=== PATIENT | male | born 1985 | race Hispanic/Latino ===

== ENCOUNTER 2017-04-22 19:55 | Emergency (ER) | payer SELFPAY | END 2017-04-22 21:08 | disposition home or self-care (01) | LOC: EDH 19:55 | DX: N50.89 Other specified disorders of the male genital organs (principal); E11.9 Type 2 diabetes mellitus without complications; Z72.0 Tobacco use | CPT/HCPCS: 76870 ==

== ENCOUNTER 2017-04-24 15:14 | Emergency (ER) | payer SELFPAY | END 2017-04-24 15:57 | disposition home or self-care (01) | LOC: EDH 15:14 | DX: L73.8 Other specified follicular disorders (principal); E11.9 Type 2 diabetes mellitus without complications; Z72.0 Tobacco use ==

== ENCOUNTER 2023-06-11 18:29 | Inpatient (IN) | payer OTHER ==
[~2023-06-11] VITALS: Ht 167.6 cm; Wt 75.4 kg
[2023-06-11 19:13] LABS: BASOPHILS # (AUTO) 0.04 K/uL (0.00-0.20); BASOPHILS % (AUTO) 0.3 % (0.0-5.0); EOSINOPHILS # (AUTO) 0.37 K/uL (0.00-0.70); EOSINOPHILS % (AUTO) 2.8 % (0.0-8.0); IMMATURE GRANULOCYTE ABSOLUTE 0.06 K/uL (0-1); LYMPHOCYTES # (AUTO) 2.8 K/uL (1.0-4.8); LYMPHOCYTES % (AUTO) 20.6 % (21.0-51.0); MEAN CORPUSCULAR HEMOGLOBIN 30.9 pg (27.0-33.0); MEAN CORPUSCULAR HGB CONC 34.2 g/dL (32.0-36.0); MEAN CORPUSCULAR VOLUME 90.3 fL (79-99); MONOCYTES # (AUTO) 1.2 K/uL (0.1-1.0); MONOCYTES % (AUTO) 9.2 % (3.0-13.0); NEUTROPHILS % (AUTO) 66.7 % (40.0-77.0); PLATELET COUNT (AUTO) 318 K/uL (130-400); RED BLOOD CELL COUNT(AUTO) 2.88 MIL/uL (4.50-6.20); RED CELL DISTRIBUTION WIDTH 13.9 % (11.0-15.5); WHITE BLOOD COUNT (AUTO) 13.4 K/uL (4.8-10.8)
[2023-06-11 19:23] LABS: CREATININE 5.6 mg/dL (0.5-1.3); POTASSIUM 4.1 mmol/L (3.5-5.1)
[2023-06-11 19:28] LABS: ALBUMIN 2.1 g/dL (3.5-5.0); BILIRUBIN,TOTAL 0.1 mg/dL (0.2-1.0); TOTAL PROTEIN, SERUM 6.3 g/dL (6.0-8.3)
[2023-06-11] MEDS: ASPIRIN 81MG CHEW TAB PO ONE (20:22)
[2023-06-11] MEDS: NITROGLYCERIN 1GM OINT 1 INCH/1GM TD ONE (20:22)
[2023-06-11 22:44] LABS: INR <= 0.93 (0.85-1.15); PROTHROMBIN TIME 9.5 SEC (9.6-11.6)
[2023-06-11 22:45] LABS: PARTIAL THROMBOPLASTIN TIME 31.6 SEC (26.3-35.5)
[2023-06-11] MEDS ORDERED: MAG/ALUM/SIMETH 30 ML UDCUP PO PRN (23:00)
[2023-06-11] MEDS ORDERED: NITROGLYCERIN 0.4 MG SL TAB SL PRN (23:00)
[2023-06-11] MEDS ORDERED: LACTULOSE 20 GM/30 ML UDCUP PO PRN (23:00)
[2023-06-11] MEDS ORDERED: ACETAMINOPHEN WITH CODEINE 1 TAB TAB PO PRN ×2 (23:00)
[2023-06-11] MEDS ORDERED: DIPHENHYDRAMINE HCL 25 MG CAPSULE PO PRN (23:00)
[2023-06-11] MEDS ORDERED: FOLIC ACID PO (23:35)
[2023-06-11] MEDS ORDERED: SODI650T PO (23:35)
[2023-06-11] MEDS ORDERED: FOLI1TAB85 PO (23:35)
[2023-06-11] MEDS ORDERED: HYDR25TA67 PO (23:35)
[2023-06-11] MEDS: FAMOTIDINE 20MG VIAL IV SCH (23:49)
[2023-06-11] MEDS: CEFTRIAXONE 1G VIAL IV SCH (23:50)
[2023-06-12] VITALS (23 sets, daily range): BP systolic 131–184; BP diastolic 69–99; PULSE 83–105; RESP 16–20; TEMP 97.7–98.1; O2SAT 100
[2023-06-12] MEDS: HYDRALAZINE 20MG/ML VIAL IV PRN (03:48)
[2023-06-12] MEDS ORDERED: GLUCAGON 1MG KIT 1 MG ML IM PRN (05:30)
[2023-06-12] MEDS ORDERED: DEXTROSE 50%-WATER 50 ML DISP.SYRIN IV PRN (05:30)
[2023-06-12] MEDS: INSULIN HUMULIN R 100 UNIT/ML 3ML SQ SCH (05:39)
[2023-06-12] MEDS: HEPARIN 5,000 UNIT VIAL SQ SCH (06:10)
[2023-06-12] MEDS: SODIUM BICARBONATE 650 MG TAB PO SCH (09:00)
[2023-06-12] MEDS: FOLIC ACID 1 MG TABLET PO SCH (09:00)
[2023-06-12] MEDS: HYDRALAZINE 25MG TABLET PO SCH (09:00)
[2023-06-12] MEDS: Vitamin B Complex/Vit C/Folic Acid PO SCH (09:00)
[2023-06-12 13:22] LABS: CREATININE 3.2 mg/dL (0.5-1.3)
[2023-06-12 13:28] LABS: % IRON SATURATION 26.9 % (30-44)
[2023-06-12 14:32] LABS: HIV 1&2 ANTIBODY Non-Reactive (Negative)
[2023-06-12 14:33] LABS: HIV-1 p24 Antigen Non-Reactive (Negative)
[2023-06-12] MEDS: ATORVASTATIN 40 MG TABLET PO SCH (20:06)
[2023-06-12] MEDS: ACETAMINOPHEN WITH CODEINE 1 TAB TAB PO PRN (20:07)
[2023-06-12 21:53] LABS: HEPATITIS B CORE AB TOTAL Non-Reactive (Nonreactive); HEPATITIS B SURFACE ANTIBODY Negative (Reactive); HEPATITIS B SURFACE ANTIGEN Non-Reactive (Nonreactive)
[2023-06-13] VITALS (8 sets, daily range): BP systolic 141–182; BP diastolic 75–92; PULSE 74–102; RESP 18–20; O2SAT 98–100
[2023-06-13 12:20] LABS: HEMATOCRIT 31.5 % (42-54); MEAN CORPUSCULAR HEMOGLOBIN 30.9 pg (27.0-33.0); MEAN CORPUSCULAR HGB CONC 32.1 g/dL (32.0-36.0); MEAN CORPUSCULAR VOLUME 96.3 fL (79-99); RED BLOOD CELL COUNT(AUTO) 3.27 MIL/uL (4.50-6.20); RED CELL DISTRIBUTION WIDTH 14.1 % (11.0-15.5)
[2023-06-13 12:48] LABS: CREATININE 5.2 mg/dL (0.5-1.3); POTASSIUM 3.9 mmol/L (3.5-5.1)
[2023-06-14] VITALS (22 sets, daily range): BP systolic 117–187; BP diastolic 70–104; PULSE 82–97; RESP 16–20; TEMP 98.2–98.4; O2SAT 98–100
[2023-06-14 04:53] LABS: HEMATOCRIT 28.5 % (42-54); MEAN CORPUSCULAR HEMOGLOBIN 30.5 pg (27.0-33.0); MEAN CORPUSCULAR VOLUME 92.5 fL (79-99); RED BLOOD CELL COUNT(AUTO) 3.08 MIL/uL (4.50-6.20); RED CELL DISTRIBUTION WIDTH 13.9 % (11.0-15.5); WHITE BLOOD COUNT (AUTO) 13.6 K/uL (4.8-10.8)
[2023-06-14 05:01] LABS: CREATININE 5.9 mg/dL (0.5-1.3)
[2023-06-14] MEDS: HEPARIN 5,000 UNIT VIAL IRRIG PRN (12:17)
[2023-06-14] MEDS: MORPHINE 2 MG SYG IVP ONE (12:45)
[2023-06-14 13:41] LABS: ALBUMIN 2.2 g/dL (3.5-5.0); BILIRUBIN,TOTAL 0.3 mg/dL (0.2-1.0); CREATININE 3.7 mg/dL (0.5-1.3); MAGNESIUM 1.7 mg/dL (1.80-2.40); POTASSIUM 3.8 mmol/L (3.5-5.1)
[2023-06-14] MEDS: HYDROMORPHONE 0.5 MG SYG (0.5MG/0.5ML) IVP STA (20:18)
[2023-06-15] VITALS (9 sets, daily range): BP systolic 144–181; BP diastolic 76–93; PULSE 79–108; RESP 17–21; O2SAT 97
[2023-06-15 05:15] LABS: HEMATOCRIT 26.5 % (42-54); MEAN CORPUSCULAR HEMOGLOBIN 31.2 pg (27.0-33.0); MEAN CORPUSCULAR HGB CONC 33.2 g/dL (32.0-36.0); RED BLOOD CELL COUNT(AUTO) 2.82 MIL/uL (4.50-6.20); RED CELL DISTRIBUTION WIDTH 13.8 % (11.0-15.5); WHITE BLOOD COUNT (AUTO) 13.1 K/uL (4.8-10.8)
[2023-06-15 05:26] LABS: CREATININE 4.9 mg/dL (0.5-1.3); MAGNESIUM 1.7 mg/dL (1.80-2.40); PHOSPHORUS 6.1 mg/dL (2.5-4.9); POTASSIUM 3.6 mmol/L (3.5-5.1)
[2023-06-15] MEDS: VITAMIN E 400 UNIT CAPSULE PO SCH (08:39)
[2023-06-16] VITALS (24 sets, daily range): BP systolic 143–195; BP diastolic 78–97; PULSE 76–107; RESP 16–20; TEMP 98–98.3; O2SAT 100
[2023-06-16 04:23] LABS: HEMATOCRIT 25.9 % (42-54); MEAN CORPUSCULAR HEMOGLOBIN 30.8 pg (27.0-33.0); MEAN CORPUSCULAR HGB CONC 33.2 g/dL (32.0-36.0); MEAN CORPUSCULAR VOLUME 92.8 fL (79-99); RED BLOOD CELL COUNT(AUTO) 2.79 MIL/uL (4.50-6.20); RED CELL DISTRIBUTION WIDTH 13.6 % (11.0-15.5); WHITE BLOOD COUNT (AUTO) 13.4 K/uL (4.8-10.8)
[2023-06-16 04:33] LABS: MAGNESIUM 1.7 mg/dL (1.80-2.40); PHOSPHORUS 6.1 mg/dL (2.5-4.9); POTASSIUM 3.9 mmol/L (3.5-5.1)
[2023-06-16] MEDS: AMLODIPINE 5 MG TAB PO SCH (08:25)
[2023-06-16] MEDS: ACETAMINOPHEN 325 MG TAB PO PRN (17:11)
[2023-06-17] VITALS (8 sets, daily range): BP systolic 145–195; BP diastolic 70–92; PULSE 96–116; RESP 16–19; O2SAT 96–100
[2023-06-17 03:50] LABS: BASOPHILS # (AUTO) 0.05 K/uL (0.00-0.20); BASOPHILS % (AUTO) 0.4 % (0.0-5.0); EOSINOPHILS # (AUTO) 0.44 K/uL (0.00-0.70); EOSINOPHILS % (AUTO) 3.6 % (0.0-8.0); HEMATOCRIT 31.5 % (42-54); IMMATURE GRANULOCYTE ABSOLUTE 0.09 K/uL (0-1); LYMPHOCYTES # (AUTO) 2.8 K/uL (1.0-4.8); LYMPHOCYTES % (AUTO) 22.4 % (21.0-51.0); MEAN CORPUSCULAR HEMOGLOBIN 31.3 pg (27.0-33.0); MEAN CORPUSCULAR VOLUME 94.9 fL (79-99); MONOCYTES # (AUTO) 1.1 K/uL (0.1-1.0); NEUTROPHILS # (AUTO) 7.8 K/uL (1.8-7.7); NEUTROPHILS % (AUTO) 63.9 % (40.0-77.0); PLATELET COUNT (AUTO) 425 K/uL (130-400); RED BLOOD CELL COUNT(AUTO) 3.32 MIL/uL (4.50-6.20); RED CELL DISTRIBUTION WIDTH 13.9 % (11.0-15.5); WHITE BLOOD COUNT (AUTO) 12.3 K/uL (4.8-10.8)
[2023-06-17 04:25] LABS: ALBUMIN 2.1 g/dL (3.5-5.0); BILIRUBIN,TOTAL 0.2 mg/dL (0.2-1.0); CREATININE 4.6 mg/dL (0.5-1.3); MAGNESIUM 1.8 mg/dL (1.80-2.40); TOTAL PROTEIN, SERUM 6.8 g/dL (6.0-8.3)
[2023-06-18] VITALS (10 sets, daily range): BP systolic 139–184; BP diastolic 67–102; PULSE 100–120; RESP 17–19; O2SAT 99–100
[2023-06-18] MEDS: ONDANSETRON 4MG INJ IV PRN (05:39)
[2023-06-19] VITALS (37 sets, daily range): BP systolic 128–203; BP diastolic 64–105; PULSE 80–130; RESP 11–24; TEMP 97.8–98; O2SAT 98
[2023-06-19 05:47] LABS: BASOPHILS # (AUTO) 0.08 K/uL (0.00-0.20); BASOPHILS % (AUTO) 0.5 % (0.0-5.0); EOSINOPHILS % (AUTO) 2.7 % (0.0-8.0); HEMATOCRIT 27.3 % (42-54); IMMATURE GRANULOCYTE ABSOLUTE 0.16 K/uL (0-1); LYMPHOCYTES # (AUTO) 2.4 K/uL (1.0-4.8); LYMPHOCYTES % (AUTO) 16.3 % (21.0-51.0); MEAN CORPUSCULAR HEMOGLOBIN 31.4 pg (27.0-33.0); MEAN CORPUSCULAR HGB CONC 32.6 g/dL (32.0-36.0); MEAN CORPUSCULAR VOLUME 96.5 fL (79-99); MONOCYTES # (AUTO) 1.4 K/uL (0.1-1.0); MONOCYTES % (AUTO) 9.4 % (3.0-13.0); NEUTROPHILS # (AUTO) 10.4 K/uL (1.8-7.7); PLATELET COUNT (AUTO) 340 K/uL (130-400); RED BLOOD CELL COUNT(AUTO) 2.83 MIL/uL (4.50-6.20); RED CELL DISTRIBUTION WIDTH 14.2 % (11.0-15.5); WHITE BLOOD COUNT (AUTO) 14.8 K/uL (4.8-10.8)
[2023-06-19 06:10] LABS: BILIRUBIN,TOTAL 0.2 mg/dL (0.2-1.0); CREATININE 6.4 mg/dL (0.5-1.3); MAGNESIUM 1.7 mg/dL (1.80-2.40); PHOSPHORUS 4.8 mg/dL (2.5-4.9); POTASSIUM 4.6 mmol/L (3.5-5.1); TOTAL PROTEIN, SERUM 5.9 g/dL (6.0-8.3)
[2023-06-19 06:11] LABS: INR <= 0.93 (0.85-1.15); PROTHROMBIN TIME 9.8 SEC (9.6-11.6)
[2023-06-19 06:13] LABS: PARTIAL THROMBOPLASTIN TIME 29.5 SEC (26.3-35.5)
[2023-06-19] MEDS ORDERED: ATOR40TA69 PO (09:28)
[2023-06-19] MEDS ORDERED: VITA-395 PO (09:28)
[2023-06-19] MEDS ORDERED: AMLO5TAB4 PO (09:28)
[2023-06-19] MEDS ORDERED: MIDAZOLAM HCL 1 MG/ML 2ML VIAL ONE (14:03)
[2023-06-19] MEDS ORDERED: PROPOFOL 10 MG/ML 20ML VIAL IV ONE ×2 (14:03→14:45)
[2023-06-19] MEDS ORDERED: FENTANYL CITRATE PF 50 MCG/1 ML 2ML VIAL ONE ×2 (14:04→15:45)
[2023-06-19] MEDS ORDERED: ONDANSETRON 4MG INJ ONE (14:17)
[2023-06-19] MEDS ORDERED: ROCURONIUM BROMIDE 10MG/1ML 5ML VL ONE (14:17)
[2023-06-19] MEDS ORDERED: PHENYLEPHRINE HCL 10 MG/ML 1ML VIAL IV ONE (14:37)
[2023-06-19] MEDS ORDERED: PROTAMINE SULFATE 10 MG/ML 5 ML VIAL ONE ×2 (15:11→15:30)
[2023-06-19] MEDS ORDERED: NEOSTIGMINE METHYLSULFATE 1MG/ML IV ONE (15:49)
[2023-06-19] MEDS ORDERED: GLYCOPYRROLATE 0.2 MG/ML 5 ML VIAL ONE (15:49)
[2023-06-19] MEDS: MEPERIDINE-PF 25 MG/ML SYG ONE (16:50)
[2023-06-19] MEDS: FENTANYL CITRATE PF 50 MCG/1 ML 2ML VIAL ONE (16:50)
[2023-06-19] MEDS: LABETALOL 20MG SYG IV ONE (16:51)
[2023-06-19] MEDS: ONDANSETRON 4MG INJ ONE (16:51)
[2023-06-19] MEDS ORDERED: TRAMADOL HCL 50 MG TABLET PO PRN (17:30)
[2023-06-19] MEDS ORDERED: ACETAMINOPHEN 325 MG TAB PO PRN (17:30)
[2023-06-19] MEDS: TRAMADOL HCL 50 MG TABLET PO PRN (23:00)
[2023-06-20 01:30] VITALS: BP 170/77; PULSE 103
[2023-06-20 02:31] VITALS: BP 146/69
[2023-06-20 04:09] VITALS: BP 131/64; PULSE 92; RESP 18
[2023-06-20 06:10] LABS: HEMATOCRIT 25.7 % (42-54); MEAN CORPUSCULAR HGB CONC 33.1 g/dL (32.0-36.0); MEAN CORPUSCULAR VOLUME 93.8 fL (79-99); RED BLOOD CELL COUNT(AUTO) 2.74 MIL/uL (4.50-6.20); WHITE BLOOD COUNT (AUTO) 15.7 K/uL (4.8-10.8)
[2023-06-20 06:21] LABS: CREATININE 4.8 mg/dL (0.5-1.3); PHOSPHORUS 4.6 mg/dL (2.5-4.9)
[2023-06-20 08:00] VITALS: BP 151/74; PULSE 97; RESP 17; O2SAT 98
[2023-06-20] MEDS ORDERED: APIX2.5T PO (08:40)
[2023-06-20] MEDS: GUAIFENESIN-DM 200/20 MG 10 ML PO PRN (10:11)
[2023-06-20 11:54] VITALS: BP 150/81; PULSE 116; RESP 19
== END 2023-06-20 15:00 | disposition home or self-care (01) | DRG 264 ==
LOC: EDH 18:29 → EDHIP 18:30 → 4BH 06-12 03:01
PROVIDERS: ADMIT Hospitalist; ATTEND Hospitalist
PROC: 5A1D70Z Performance of Urinary Filtration, Intermittent, Less than 6 Hours Per Day (ICD-10-PCS; 2023-06-12)
PROC: 5A1D70Z Performance of Urinary Filtration, Intermittent, Less than 6 Hours Per Day (ICD-10-PCS; 2023-06-14)
PROC: 5A1D70Z Performance of Urinary Filtration, Intermittent, Less than 6 Hours Per Day (ICD-10-PCS; 2023-06-16)
PROC: 5A1D70Z Performance of Urinary Filtration, Intermittent, Less than 6 Hours Per Day (ICD-10-PCS; 2023-06-19)
PROC: 03170ZD Bypass Right Brachial Artery to Upper Arm Vein, Open Approach (ICD-10-PCS; principal; 2023-06-19 14:12)
DX: I82.612 Acute embolism and thrombosis of superficial veins of left upper extremity (principal); N18.6 End stage renal disease; I21.A1 Myocardial infarction type 2; J96.01 Acute respiratory failure with hypoxia; E87.20 Acidosis, unspecified; I12.0 Hypertensive chronic kidney disease with stage 5 chronic kidney disease or end stage renal disease; E11.22 Type 2 diabetes mellitus with diabetic chronic kidney disease; D72.829 Elevated white blood cell count, unspecified; D64.9 Anemia, unspecified; E11.51 Type 2 diabetes mellitus with diabetic peripheral angiopathy without gangrene; E78.5 Hyperlipidemia, unspecified; E87.70 Fluid overload, unspecified; I25.10 Atherosclerotic heart disease of native coronary artery without angina pectoris; Z91.199 Patient's noncompliance with other medical treatment and regimen due to unspecified reason; Z99.2 Dependence on renal dialysis
CPT/HCPCS: 36415; 71045; 80048; 80053; 80061; 82040; 82550; 82565; 82948; 83540; 83550; 83735; 83880; 84100; 84145; 84484; 84520; 85014; 85018; 85025; 85027; 85610; 85730; 86701; 86704; 86706; 86803; 86850; 86900; 86901; 87040; 87340; 87390; 90935; 93005; 93306; 93925; 93970; 93971; 96365; 96375; G0378; J0360; J0696; J1170; J1644; J1815; J2175; J2250; J2270; J2371; J2405; J2704; J2710; J2720; J3010; J3490; J7030; J7040; A4216; A4222; A4223; A4649; A4930; A6219; C1713; G0168

== ENCOUNTER 2023-11-08 12:31 | Emergency (ER) | payer BC, OTHER ==
[~2023-11-08] VITALS: Ht 162.6 cm; Wt 80.7 kg
[~2023-11-08 12:31] MED LIST: AMLO5TAB4 PO; APIX2.5T PO; ATOR40TA69 PO; FOLI1TAB85 PO; FOLIC ACID PO; HYDR25TA67 PO; SODI650T PO; VITA-395 PO
[2023-11-08 13:08] LABS: BASOPHILS # (AUTO) 0.03 K/uL (0.00-0.20); BASOPHILS % (AUTO) 0.2 % (0.0-5.0); EOSINOPHILS # (AUTO) 0.02 K/uL (0.00-0.70); EOSINOPHILS % (AUTO) 0.1 % (0.0-8.0); HEMATOCRIT 29.5 % (42-54); IMMATURE GRANULOCYTE ABSOLUTE 0.11 K/uL (0-1); LYMPHOCYTES # (AUTO) 0.8 K/uL (1.0-4.8); LYMPHOCYTES % (AUTO) 5.7 % (21.0-51.0); MEAN CORPUSCULAR HEMOGLOBIN 32.3 pg (27.0-33.0); MEAN CORPUSCULAR HGB CONC 34.2 g/dL (32.0-36.0); MEAN CORPUSCULAR VOLUME 94.2 fL (79-99); MONOCYTES # (AUTO) 1.6 K/uL (0.1-1.0); MONOCYTES % (AUTO) 10.6 % (3.0-13.0); NEUTROPHILS # (AUTO) 12.2 K/uL (1.8-7.7); NEUTROPHILS % (AUTO) 82.7 % (40.0-77.0); PLATELET COUNT (AUTO) 224 K/uL (130-400); RED BLOOD CELL COUNT(AUTO) 3.13 MIL/uL (4.50-6.20); RED CELL DISTRIBUTION WIDTH 13.8 % (11.0-15.5); WHITE BLOOD COUNT (AUTO) 14.8 K/uL (4.8-10.8)
[2023-11-08 13:24] LABS: POTASSIUM 3.7 mmol/L (3.5-5.1)
[2023-11-08 13:30] LABS: CREATININE 8.2 mg/dL (0.5-1.3)
[2023-11-08 14:01] LABS: SARS-CoV-2, RNA, NAAT NEGATIVE SARS CoV-2 (NEGATIVE)
[2023-11-08 14:05] LABS: INFLUENZA TYPE A Negative For Type A (NEGATIVE); INFLUENZA TYPE B Negative For Type B (NEGATIVE)
[2023-11-08] MEDS: acetaMINOPHEN 500 MG TABLET PO ONE (14:14)
[2023-11-08] MEDS: CEFTRIAXONE 2GM VIAL IVPB ONE (15:57)
[2023-11-08] MEDS: 0.9%NACL 1000ML 1,000 ML IV ONE (15:57)
[2023-11-08 18:04] LABS: APPEARANCE,URINE CLEAR (CLEAR); BILIRUBIN,URINE NEGATIVE (NEGATIVE); COLOR,URINE LIGHT-YELLOW (YELLOW); GLUCOSE, URINE (UA) TRACE mg/dL (NEGATIVE); KETONES,URINE NEGATIVE (NEGATIVE); LEUKOCYTE ESTERASE ,URINE NEGATIVE Leu/uL (NEGATIVE); NITRATE,URINE NEGATIVE (NEGATIVE); OCCULT BLOOD,URINE MODERATE (NEGATIVE); PROTEIN,URINE 600 mg/dL (NEGATIVE); UROBILINOGEN,URINE 0.2 mg/dL (0.2-1.0)
[2023-11-08 18:07] VITALS: BP 134/76; PULSE 82; RESP 16; TEMP 98.6; O2SAT 97
[2023-11-08 18:07] LABS: ADD UA MICROSCOPIC YES
[2023-11-08 18:08] LABS: BACTERIA,URINE RARE /HPF (None Seen); MUCUS,URINE RARE LPF (None Seen); RBC,URINE 0-1 /HPF (0-1); SQUAMOUS EPITHELIAL CELL,UR RARE /HPF (0-2)
== END 2023-11-08 18:08 | disposition home or self-care (01) ==
LOC: EDH 12:31
DX: K52.9 Noninfective gastroenteritis and colitis, unspecified (principal); Z20.822 Contact with and (suspected) exposure to COVID-19; R30.9 Painful micturition, unspecified; R11.2 Nausea with vomiting, unspecified; R53.1 Weakness; R25.2 Cramp and spasm; R50.9 Fever, unspecified; N18.6 End stage renal disease; Z99.2 Dependence on renal dialysis; Z79.899 Other long term (current) drug therapy
CPT/HCPCS: 99284; 96365; 71045; 87635; 82550; 84484; 80048; 85025; 87040 ×2; 87086 ×2; 87186 ×2; 87804 ×2; 83605 ×2; 81001; 36415; 93005; J7030; J0696

== ENCOUNTER 2024-07-26 17:36 | Emergency (ER) | payer BC ==
[~2024-07-26] VITALS: Ht 167.6 cm; Wt 79.4 kg
[2024-07-26 18:02] LABS: BASOPHILS # (AUTO) 0.06 K/uL (0.00-0.20); BASOPHILS % (AUTO) 0.5 % (0.0-5.0); EOSINOPHILS # (AUTO) 0.31 K/uL (0.00-0.70); EOSINOPHILS % (AUTO) 2.4 % (0.0-8.0); HEMATOCRIT 36.8 % (42-54); IMMATURE GRANULOCYTE ABSOLUTE 0.08 K/uL (0-1); LYMPHOCYTES # (AUTO) 2.7 K/uL (1.0-4.8); LYMPHOCYTES % (AUTO) 21.1 % (21.0-51.0); MEAN CORPUSCULAR HGB CONC 33.2 g/dL (32.0-36.0); MEAN CORPUSCULAR VOLUME 96.6 fL (79-99); MONOCYTES # (AUTO) 1.3 K/uL (0.1-1.0); MONOCYTES % (AUTO) 9.8 % (3.0-13.0); NEUTROPHILS # (AUTO) 8.4 K/uL (1.8-7.7); NEUTROPHILS % (AUTO) 65.6 % (40.0-77.0); PLATELET COUNT (AUTO) 329 K/uL (130-400); RED BLOOD CELL COUNT(AUTO) 3.81 MIL/uL (4.50-6.20); RED CELL DISTRIBUTION WIDTH 13.1 % (11.0-15.5); WHITE BLOOD COUNT (AUTO) 12.7 K/uL (4.8-10.8)
--- NOTE | 2024-07-26 18:02 | NUR ---
PATIENT WITH NO DISTRESS NOTED, STATES SOB AT REST, DENIES PAIN. NOTED WITH RIGHT SIDED CHEST PORT FOR HEMODIALYSIS MWF
--- NOTE | 2024-07-26 18:28 | HMCIMG ---
Exam Type: CHEST 1VW Clinical Information: Dyspnea/SOB Comparison: None Findings: Right permacath line is noted with tip at the distal superior vena caval level. The lungs are clear of infiltrates. The heart is enlarged. Bony and soft tissue structures of the chest wall are unremarkable. IMPRESSION: Cardiomegaly. Clear lungs.
[2024-07-26 18:36] LABS: CREATININE 9.3 mg/dL (0.5-1.3)
[2024-07-26 19:00] VITALS: BP 162/80; PULSE 76; RESP 18; TEMP 98; O2SAT 99
--- NOTE | 2024-07-26 19:00 | ERN ---
General Chief Complaint: Shortness of Breath Stated Complaint: SOB Time Seen by MD: 17:42 History of Present Illness Initial Comments 38-year-old male history of diabetes, ESRD on dialysis Sunday right chest wall access, presents for dyspnea. Patient reports he was eating chips, he thought an episode where he felt like he can take a deep breath. It was brief only lasting a few sec. He had another episode here in the ER. No palpitations or chest pains. He denies any sore throat cough congestion vomiting diarrhea or any other symptom. He went to dialysis yesterday without complication. Allergies: Coded Allergies: caffeine (Unverified Allergy, Unknown, 06/11/23) Home Meds Active Scripts Apixaban (Eliquis) 2.5 Mg Tablet, 2.5 MG PO BID for 30 Days, #30 TAB Prov:ILEANA GUO NP 06/20/23 Vitamin E (Dl,Tocopheryl Acet) (Vitamin E) 180 Mg (400 Unit) Capsule, 400 UNIT PO DAILY for 30 Days, #30 CAP Prov:ILEANA GUO NP 06/19/23 Atorvastatin Calcium (LIPITOR) 40 Mg Tablet, 40 MG PO HS for 30 Days, #30 TAB Prov:ILEANA GUO NP 06/19/23 Amlodipine Besylate (Norvasc 5Mg Tab) 5 Mg Tablet, 5 MG PO DAILY for 30 Days, #30 TAB Prov:ILEANA GUO NP 06/19/23 Reported Medications Hydralazine HCl (Hydralazine HCl) 25 Mg Tablet, 25 MG PO TID, TAB 06/11/23 [Folic Acid] No Conflict Check, 1 MG PO DAILY 06/11/23 Sodium Bicarbonate (Sodium Bicarbonate) 650 Mg Tablet, 650 MG PO BID, TAB 06/11/23 Vit B Cmplx 3/FA/Vit C/Biotin (Denisa-Leonie Rx Tablet) 1 Mg-60 Mg-300 Mcg Tablet, 1 EACH PO DAILY, TAB 06/11/23 Past Medical History Past Medical History: Diabetes-Type II, Hypertension, Renal Failure, Other Medical History Other: CKD ON DIALYSIS Past Surgical History: Other, RAVA Surgical History Other: R CHEST PORT FOR DIALYSIS Results Laboratory and Microbiology Lab and Micro Result Laboratory Tests Test 07/26/24 17:47 White Blood Count 12.7 K/uL (4.8-10.8) H Red Blood Count 3.81 MIL/uL (4.50-6.20) L Hemoglobin 12.2 g/dL (14.0-18.0) L Hematocrit 36.8 % (42-54) L Mean Corpuscular Volume 96.6 fL (79-99) Mean Corpuscular Hemoglobin 32.0 pg (27.0-33.0) Mean Corpuscular Hemoglobin Concent 33.2 g/dL (32.0-36.0) Red Cell Distribution Width 13.1 % (11.0-15.5) Platelet Count 329 K/uL (130-400) Mean Platelet Volume 11.0 fL (7.5-10.5) H Immature Granulocyte % (Auto) 0.6 % (0-1) Neutrophils (%) (Auto) 65.6 % (40.0-77.0) Lymphocytes (%) (Auto) 21.1 % (21.0-51.0) Monocytes (%) (Auto) 9.8 % (3.0-13.0) Eosinophils (%) (Auto) 2.4 % (0.0-8.0) Basophils (%) (Auto) 0.5 % (0.0-5.0) Neutrophils # (Auto) 8.4 K/uL (1.8-7.7) H Lymphocytes # (Auto) 2.7 K/uL (1.0-4.8) Monocytes # (Auto) 1.3 K/uL (0.1-1.0) H Eosinophils # (Auto) 0.31 K/uL (0.00-0.70) Basophils # (Auto) 0.06 K/uL (0.00-0.20) Absolute Immature Granulocyte (auto 0.08 K/uL (0-1) Nucleated Red Blood Cells 0.0 % (0.0-0.19) Sodium Level 131 mmol/L (136-145) L Potassium Level 4.0 mmol/L (3.5-5.1) Chloride Level 90 mmol/L (101-111) *L Carbon Dioxide Level 29 mmol/L (21-32) Blood Urea Nitrogen 36 mg/dL (7-18) H Creatinine 9.3 mg/dL (0.5-1.3) *H Glomerular Filtration Rate Calc 7 mL/min (>90) Random Glucose 240 mg/dL (70-105) H Total Calcium 7.4 mg/dL (8.5-10.1) L Total Creatine Kinase 171 U/L (21-232) # Troponin I High Sensitivity 25 ng/L (4-75) KV-Zby-Q-Type Natriuretic Peptide 85339 pg/mL (0-125) H MDM CC: Brief episode of dyspnea, resolved Historian: Patient Comorbidities: Diabetes, hypertension, refill ESR down doses Limitations by social determinants of health: None Differential diagnosis: ACS, anxiety, fluid overload, vocal cord abnormality, other. Vital signs: Hypertension 164/80, otherwise vital signs stable. Oxygen saturation 99% on room air. Clinical exam is unremarkable. No signs of fluid overload, clear lung chisholm. Nontoxic in appearance, no distress. EKG (independently interpreted by me): Normal sinus rhythm, rate 90, normal axis, good R-wave progression, LVH, no STEMI. CXR (independently interpreted by me): Cardiomegaly, no focal infiltrates pleural effusions. Labs (independently ordered and interpreted by me): Leukocytosis 12.7k no shift or bands. Normocytic anemia hemoglobin 12.2. Metabolic panel shows sodium 131 chloride 90 otherwise electrolytes are stable. Creatinine 9.3 BUN at 36 baseline for patient. Troponin stable. Does have an elevated pro BNP 86098. I re-evaluated the patient. Has a conversation with the patient regarding his current presentation. This is a 12 May be having some anxiety about his health. He also reports some tightness up in his neck so he may be having some sort of vocal cord abnormality. He is currently being worked up as an outpatient. I do not see any signs of fluid overload, pneumonia, ACS, or any other life threats in his point in time I do not think there was any indication for admission. I did offer the patient an observation stay overnight it is he is dyspneic and has a clear diagnosis, we can consider getting him dialysis tomorrow, with the patient reports that he just wanted some reassurance and he overall feels fine and he will go home. He will follow up as an outpatient with his regularly scheduled dialysis. ED Course Orders Procedure Category Date Status Time Cbc With Differential LAB 07/26/24 Complete 17:48 Cardiac Panel LAB 07/26/24 Complete 17:48 Chest 1vw RAD 07/26/24 Resulted 17:48 12 Lead Ekg Tracing- EKG 07/26/24 Resulted Technical 17:48 Basic Metabolic Panel LAB 07/26/24 Complete 17:48 Probnp LAB 07/26/24 Complete 17:48 Vital Signs Date Time Temp Pulse Resp B/P (MAP) Pulse Ox O2 Delivery O2 Flow Rate FiO2 07/26/24 19:00 98.1 76 18 162/80 99 Room Air* 0 07/26/24 18:02 97.9 83 18 166/82 98 Room Air* 0 07/26/24 17:38 98.4 89 20 164/80 99 Room Air DX & DISP Disposition: Discharge Departure Impression: Primary Impression: Dyspnea Additional Impression: Anxiety about health Condition: Stable Additional Instructions: There are no dangerous findings on your workup here today. Your vital signs are normal. Your oxygen level is normal. You EKGs normal. Your chest x-ray is normal. As we discussed, I think that you will be able to go to dialysis on Sunday as regularly scheduled. If you feel too short of breath over the next 24 hours or so, please return to the emergency department and you can be re-evaluated. Referrals: SELF,REFERRAL (PCP) MACIEJ COLON DO Jul 26, 2024 19:00
--- NOTE | 2024-07-27 08:04 | EKG ---
[facility] Test Date: 2024-07-26 Test Time: 17:50:11 Pat Name: SAMY RENO Department: [facility] Room: Gender: M Photographer Finish: 08 : 1985 Requested By: MACIEJ COLON Order Number: [id number] Reading MD: Kirsten Sutton Measurements Intervals [place] Rate: 90 P: 60 [place]: 156 QRS: 37 QRSD: 85 T: 47 QT: 376 QTc: 461 Interpretive Statements Sinus rhythm Probable left atrial enlargement Probable left ventricular hypertrophy Compared to ECG 11/08/2023 13:16:54 Sinus tachycardia no longer present ST (T wave) deviation no longer present Electronically Signed On 07-27-2024 12:55:56 CDT by Kirsten Sutton Please click the below link to view image of tracing.
== END 2024-07-26 19:15 | disposition home or self-care (01) ==
LOC: EDH 17:36
DX: R10.13 Epigastric pain (principal); F41.9 Anxiety disorder, unspecified; I12.0 Hypertensive chronic kidney disease with stage 5 chronic kidney disease or end stage renal disease; E11.22 Type 2 diabetes mellitus with diabetic chronic kidney disease; N18.6 End stage renal disease; Z79.01 Long term (current) use of anticoagulants; Z79.899 Other long term (current) drug therapy; Z99.2 Dependence on renal dialysis
CPT/HCPCS: 36415; 71045; 80048; 82550; 83880; 84484; 85025; 93005; 99284